=== PATIENT | male | born 1980 | race Caucasian/White ===

== ENCOUNTER → 2021-11-08 12:43 | Outpatient (CLI) | payer OTHER, SELFPAY ==
--- NOTE | ~2021-11-08 | US_ITS ---
EXAMINATION: US soft tissue head and neck DATE: 11/08/2021 12:59 INDICATION: Mass of the left neck and shoulder. TECHNIQUE: Multiple grayscale and Doppler ultrasound images of the head and neck were obtained. COMPARISON: None FINDINGS: There is no abnormal mass in the patient's area of concern in the left neck and shoulder. IMPRESSION: 1. No abnormal mass in the patient's area of concern in the left neck and shoulder. Reviewed, dictated and finalized at location A. IMPRESSION: 1. No abnormal mass in the patient's area of concern in the left neck and shoul mark.
== END ==
PROVIDERS: PCP Family Medicine; Visit Provider Family Medicine
DX: R22.30 Localized swelling, mass and lump, unspecified upper limb (principal)
CPT/HCPCS: 76536